=== PATIENT | female | born 1950 | race Caucasian/White ===

== ENCOUNTER → 2024-05-06 14:21 | Outpatient (CLI) | payer MEDICARE, OTHER, SELFPAY ==
--- NOTE | 2024-05-06 14:27 | DI.MRI.S_ITS ---
PROCEDURE: MR LUMBAR SPINE WO CON INDICATIONS: LUMBAR RADICULOPATHY TECHNIQUE: Noncontrast sagittal T1 spin echo and T2 fast echo, sagittal STIR, and T2 fast spin echo through the lumbar spine. In cases with scoliosis, additional coronal T2 fast spin echo may be performed. COMPARISON: None. FINDINGS: Image quality: Excellent. Alignment and Curvature: 5 mm grade 1 anterolisthesis of L4 on L5 secondary to facet hypertrophy. 4 mm grade 1 retrolisthesis of L5 on S1. Bone Marrow: Postsurgical changes at the L4-5 level without fixation hardware. Marrow is of normal overall signal. No acute vertebral body compression fractures. Spinal Cord: Conus medullaris terminates at the L1 level. Visualized cord demonstrates normal signal and size. Paraspinous Soft Tissues: No paravertebral masses. There is fatty infiltration of the paraspinous musculature. T12-L1: Disc desiccation and moderate circumferential disc bulging as well as bilateral facet hypertrophy. Findings result in mild narrowing of the spinal canal and mild bilateral neural foraminal narrowing. L1-L2: Disc desiccation and mild disc bulging as well as bilateral facet hypertrophy, which do not result in significant spinal canal stenosis or neural foraminal narrowing. L2-L3: Disc desiccation and mild circumferential disc bulging as well as moderate bilateral facet hypertrophy, buckling of the ligamentum flavum, and mild epidural lipomatosis. Findings result in [id number] narrowing of the spinal canal with crowding of the lateral recesses and mild bilateral neural foraminal narrowing. L3-L4: Disc desiccation and circumferential disc bulging as well as moderate bilateral facet hypertrophy, buckling of the ligamentum flavum, and mild epidural lipomatosis. Findings result in [id number] narrowing of the spinal canal with crowding of the lateral recesses and mild bilateral neural foraminal narrowing. L4-L5: Postsurgical changes from left hemilaminotomy. Grade 1 anterolisthesis. Disc desiccation and mild residual disc bulging as well as moderate to severe bilateral facet hypertrophy. There is moderate residual narrowing of the spinal canal as well as moderate left and adem-nx-itpctpsg right neural foraminal narrowing. L5-S1: Disc desiccation and loss of disc space height with circumferential disc bulging as well as moderate bilateral facet hypertrophy. Superimposed small central disc protrusion. Findings result in mild narrowing of the spinal canal as well as moderate bilateral neural foraminal narrowing. IMPRESSION: 1. Postsurgical changes at L4-5. At this level, degenerative changes and grade 1 anterolisthesis result in moderate residual or recurrent narrowing of the spinal canal as well as moderate left and mild to moderate right neural foraminal narrowing. 2. Additional multilevel degenerative disc disease and facet hypertrophy as described in detail in the body of the report. No high-grade spinal canal stenosis. Approved by: Shane Marcelino M.D. on 05/07/2024 at 12:55
== END ==
PROVIDERS: Referring Provider Orthopaedic Surgery; Visit Provider Orthopaedic Surgery
DX: M47.26 Other spondylosis with radiculopathy, lumbar region (principal); M47.27 Other spondylosis with radiculopathy, lumbosacral region; M51.16 Intervertebral disc disorders with radiculopathy, lumbar region; M51.17 Intervertebral disc disorders with radiculopathy, lumbosacral region; M43.16 Spondylolisthesis, lumbar region; M48.061 Spinal stenosis, lumbar region without neurogenic claudication
CPT/HCPCS: 72148

== ENCOUNTER → 2024-06-02 14:54 | Outpatient (CLI) | payer MEDICARE, OTHER, SELFPAY ==
--- NOTE | 2024-06-02 14:56 | DI.CT.S_ITS ---
PROCEDURE: CT LE LT W CON INDICATIONS: rule out loosening TECHNIQUE: Noncontrast 3 mm axial sections acquired through the bony pelvis. Additional 3 mm axial sections acquired through the symptomatic hip joint, with coronal and sagittal reformats. COMPARISON: [facility], CR, XR PELVIS WITH LATERAL HIP LEFT, 10/24/2023, 12:56. FINDINGS: Image quality: Excellent. Bones: Expected appearance of total left hip arthroplasty. No evidence of hardware failure or loosening. No acute fracture or dislocation involving the pelvis and left hip. Soft tissues: Remote hysterectomy. Diverticulosis. IMPRESSION: Expected appearance of total left hip arthroplasty. No acute bony abnormality noted. Dictated by: Delfino Aburto M.D. on 06/03/2024 at 11:47 Approved by: Delfino Aburto M.D. on 06/03/2024 at 11:49
== END ==
PROVIDERS: PCP Family Medicine; Referring Provider Orthopaedic Surgery; Visit Provider Orthopaedic Surgery
DX: Z96.642 Presence of left artificial hip joint (principal); Z09 Encounter for follow-up examination after completed treatment for conditions other than malignant neoplasm; Z90.710 Acquired absence of both cervix and uterus; K57.90 Diverticulosis of intestine, part unspecified, without perforation or abscess without bleeding
CPT/HCPCS: 73700